=== PATIENT | female | born 1975 | race Caucasian/White ===

== ENCOUNTER 2018-06-27 14:53 | Emergency (ER) | payer SELFPAY ==
[~2018-06-27] VITALS: Ht 157.5 cm; Wt 70.0 kg
[2018-06-27 14:59] VITALS: BP 154/98; PULSE 98; RESP 18; Ht 157.5 cm; Wt 70.0 kg
[2018-06-27] MEDS ORDERED: IBUPROFEN 600 MG TAB PO ONE (15:30)
--- NOTE | 2018-06-27 15:35 | ERD ---
ER Documentation Chief Complaint Chief Complaint SLIP AND FALL AT WORK. C/O RT WRIST AND RT KNEE PAIN HPI This patient is a 43-year-old female with no significant past medical history presenting to the emergency department complaining of right knee pain after a fall which occurred just prior to arrival. 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 Pain is rated 5/10 in severity, worse with movement, and constant. She took no medication for relief of symptoms. No other symptoms reported at this time. She denies head injury or loss of consciousness. ROS All systems reviewed and are negative except as per history of present illness. Medications Home Meds Active Scripts Naproxen* (Naprosyn*) 500 Mg Tablet, 500 MG PO BID PRN for PAIN AND/OR INFLAMMATION, #30 TAB Prov:MENDOZA VOSS PA-C 06/27/18 Allergies Allergies: Coded Allergies: No Known Allergy (Unverified , 06/27/18) PMhx/Soc Medical and Surgical Hx: pt denies Medical Hx, pt denies Surgical Hx Hx Alcohol Use: No Hx Substance Use: No Hx Tobacco Use: No Smoking Status: Never smoker FmHx Family History: No diabetes Physical Exam Vitals Vital Signs Date Temp Pulse Resp B/P (MAP) Pulse Ox O2 O2 Flow FiO2 Time Delivery Rate 06/27/18 98.0 98 18 154/98 99 14:59 (116) Physical Exam Const: No acute distress Head: Atraumatic Eyes: Normal Conjunctiva ENT: Normal External Ears, Nose and Mouth. Neck: Full range of motion. No meningismus. Resp: No respiratory distress. Skin: No petechiae or rashes Back: No midline or flank tenderness Ext: Subjective tenderness palpation of the right anterior knee. No obvious effusion or warmth. Negative anterior and posterior drawer test. Patient is neurovascularly intact distally. Neur: Awake and alert Psych: Normal Mood and Affect Results 24 hrs Current Medications Medications Dose Sig/Stephon Start Time Status Last (Trade) Ordered Route PRN Stop Time Admin Dose Reason Admin Ibuprofen 600 mg ONCE ONCE 06/27/18 DC 06/27/18 (Motrin) PO 15:30 06/27/18 15:27 15:31 [place] [id number] Radiology Main Line: [phone] DIAGNOSTIC IMAGING REPORT Patient: BOO TANG : 1975 Age: 43 Sex: F MR #: [id number] DOS: 06/27/18 0000 Ordering MD: MENDOZA VOSS PA-C Location: [facility] Room/Bed: PROCEDURE: RIGHT knee x-ray CLINICAL INDICATION: Knee pain TECHNIQUE: AP, lateral and tunnel views of the knee were obtained. COMPARISON: None FINDINGS: There is normal mineralization. No acute fracture or dislocation is seen. There is no joint effusion. There are no significant degenerative changes. There is no significant soft tissue swelling. RPTAT: AA IMPRESSION: Normal x-ray of the right knee. .Edi Borjas MD, Date Time Electronically viewed and signed by .Edi Borjas MD, MD on 06/27/2018 15:52 .S/ CC: MENDOZA VOSS PA-C [phone] Procedures/MDM This patient is a 43-year-old female presenting to the emergency department complaining of right knee pain after fall which occurred just prior to arrival. Patient did have some tenderness to palpation of the anterior right knee. X-ray was negative for any sign of fracture. The full report from the radiologist may be viewed above. Patient's extremity symptoms have stabilized while they have been evaluated in the department and are appropriate for outpatient follow up. No evidence of compartment syndrome, neurologic injury, vascular injury, open joint, open fracture, tendon laceration, or foreign body. Patient's blood pressure was elevated (>120/80) but appears stable without evidence of hypertension emergency or urgency. The patient is to follow-up and pursue outpatient monitoring and therapy with their primary care physician within 1 week and return immediately if they have any new, worsening, or concerning symptoms. No evidence of life-threatening pathology at time of discharge. Pt/family in agreement with discharge plan/diagnosis. Pt/family advised to return immediate ly with any new or worsening symptoms. Follow-up with primary care physician within the next 1-2 days. Departure Diagnosis: Primary Impression: Fall with no significant injury Encounter type: initial encounter Qualified Codes: W19.XXXA - Unspecified fall, initial encounter Condition: Fair Patient Instructions: Fall, Uncertain Cause Additional Instructions: Follow up with your PCP within the next 1-3 days for a repeat evaluation. If you require a referral to a specialist, your Primary Care Provider may be able to provide this for you. In most patient cases, a referral is not required. If you have further questions regarding this matter, please ask your Primary Care Provider. Return the the emergency department immediately if symptoms worsen or change. If you have any questions regarding medications, ask your pharmacist or us before you leave. If any adverse reactions, occur while taking your medications, discontinue the treatment and return to the emergency department immediately. If any new or worsening symptoms, uncontrolled fevers, or other unexplained symptoms occur, return to the emergency department immediately. Take your medications as directed, and complete the entire course of treatment. MENDOZA VOSS PA-C Jun 27, 2018 15:35
[2018-06-27] MEDS ORDERED: NAPR-985 PO (15:57)
== END 2018-06-27 16:14 | disposition home or self-care (01) ==
LOC: FTE 14:53
DX: M25.561 Pain in right knee (principal); M25.531 Pain in right wrist
CPT/HCPCS: 73562